=== PATIENT | female | born 1935 | race Caucasian/White ===

== ENCOUNTER → 2024-04-30 07:25 | Outpatient (REF) | payer OTHER, SELFPAY | LOC: RAD 07:25 | PROVIDERS: ATTENDING PHYSICIAN Nurse Practitioner Adult Health; FAMILY PHYSICIAN Internal Medicine | DX: S99.922A Unspecified injury of left foot, initial encounter (principal); L81.9 Disorder of pigmentation, unspecified | CPT/HCPCS: 93922; 93925 ==

== ENCOUNTER → 2024-08-01 10:13 | Outpatient (REF) | payer OTHER, SELFPAY | LOC: HWRAD 10:13 | PROVIDERS: ATTENDING PHYSICIAN Internal Medicine | DX: J01.10 Acute frontal sinusitis, unspecified (principal) | CPT/HCPCS: 70450; 70486 ==